=== PATIENT | female | born 1985 | race Caucasian/White ===

== ENCOUNTER 2016-10-06 22:10 | Emergency (ER) | payer MEDICAID, OTHER ==
[~2016-10-06] VITALS: Ht 177.8 cm; Wt 91.0 kg
[~2016-10-06 22:10] MED LIST: LORA-474 PO
[2016-10-06 22:27] VITALS: BP 149/98; PULSE 79; RESP 18; TEMP 98.3; O2SAT 100
[2016-10-06] MEDS ORDERED: KETOROLAC TROMETHAMINE 60 MG/2 ML (IM) VIAL IM ONE (23:45)
[2016-10-06] MEDS ORDERED: CYCLOBENZAPRINE HCL 10 MG TAB PO ONE (23:45)
[2016-10-06 23:58] LABS: BLOOD, URINE NEG (NEG); GLUCOSE,URINE NEG (NEG); KETONE, URINE NEG (NEG); NITRITE,URINE NEG (NEG); PH, URINE 6.5 (5.0-8.5)
[2016-10-07 00:16] LABS: URINE COLOR YELLOW (YELLW/STRAW)
--- NOTE | 2016-10-07 00:16 | RADHPO ---
EXAM DATE/TIME: 10/06/2016 23:36 [place] COMPARISON: No previous studies available for comparison. INDICATIONS : Lower back pain from unknown injury. MEDICAL HISTORY : None. SURGICAL HISTORY : None. ENCOUNTER: Initial ACUITY: 1 day PAIN SCORE: 8/10 LOCATION: Bilateral lower back. FINDINGS: There are five non-rib bearing vertebral bodies. The vertebral bodies are in normal alignment withou t evidence of subluxation or scoliosis. The disc spaces are maintained. The posterior elements are intact without evidence of spondylolysis. The pedicles are intact. Bony mineralization is normal. No fracture is identified. There is a minimal scoliosis. CONCLUSION: Minimal scoliosis with no underlying bony abnormality. Ron Irvin MD on October 07, 2016 at 0:13 Board Certified Radiologist. This report was verified electronically.
[2016-10-07 00:17] LABS: COMMENT (UR) CULT NOT INDICATED; CULTURE IF INDICATED CULT NOT INDICATED; MUCUS URINE RARE /lpf (OCC); SQUAMOUS EPITHELIAL CELL URINE 0-5 /hpf (0-5)
[2016-10-07 00:18] LABS: BACTERIA, URINE OCC /hpf
[2016-10-07] MEDS ORDERED: CYCL1TAB29 PO (01:13)
[2016-10-07] MEDS ORDERED: IBUP-232 PO (01:13)
--- NOTE | 2016-10-07 01:13 | PD ---
HPI Chief Complaint: Abdominal Pain Time Seen by Provider: 23:26 Travel History International Travel<30 days: No Contact w/Intl Traveler<30days: No Traveled to known affect area: No History of Present Illness HPI Patient is a 30-year-old female who comes in complaining of low back pain. She says she has had the pain for the past few days, and sometimes it wraps around to the front. She went to an urgent care yesterday and was prescribed Bactrim and was told she should follow-up with [facility]. She says the pain does radiate to the tops of her legs. She denies any dysuria. She has not had fever or chills. She says she occasionally has some vaginal discharge. She has not had any nausea or vomiting. She denies any injuries. She does work as a nurse. PFSH Past Medical History Blood Disorders: Yes (THROMBOCYTOPENIA DURING ) Diabetes: Yes (GESTATIONAL) Patient Takes Glucophage: No Hypertension: Yes (PREECLAMPSIA: FIRST ) Immune Disorder: Yes (GESTATIONAL ERYTHEMA NODOSUM) Tetanus Vaccination: < 5 Years ?: Not LMP: 09/24/16 : 5 Para: 3 Miscarriage: 2 Past Surgical History Surgical History: No Previous Surgery Social History Alcohol Use: Yes (OCC) Tobacco Use: No (QUIT AGE 18) Substance Use: No Allergies-Medications (Allergen,Severity, Reaction): Coded Allergies: No Known Allergies (Verified , 10/06/16) Reported Meds & Prescriptions Reported Meds & Active Scripts Active No Active Prescriptions or Reported Medications Review of Systems Except as stated in HPI: all other systems reviewed are Neg General / Constitutional: No: Fever, Chills HENT: No: Headaches, Lightheadedness Cardiovascular: No: Chest Pain or Discomfort Respiratory: No: Shortness of Breath Gastrointestinal: Positive: Abdominal Pain, No: Nausea, Vomiting Genitourinary: No: Dysuria, Flank Pain Musculoskeletal: Positive: Pain Skin: No Rash, No Change in Pigmentation Neurologic: No: Weakness, Dizziness Physical Exam Narrative GENERAL: Awake and alert, in no acute distress. SKIN: Focused skin assessment warm/dry. HEAD: Atraumatic. Normocephalic. EYES: Pupils equal and round. No scleral icterus. ENT: Mucous membranes pink and moist. NECK: Trachea midline. No JVD. CARDIOVASCULAR: Regular rate and rhythm. No murmur appreciated. RESPIRATORY: No accessory muscle use. Clear to auscultation. Breath sounds equal bilaterally. GASTROINTESTINAL: Abdomen soft, non-tender, nondistended. No CVA tenderness. : Performed in the presence of a female nurse. Thin white discharge. No cervical lesions. No CMT. MUSCULOSKELETAL: No obvious deformities. No clubbing. No cyanosis. No edema. Tender to the right sacroiliac area. NEUROLOGICAL: Awake and alert. No obvious cranial nerve deficits. Motor grossly within normal limits. Normal speech. PSYCHIATRIC: Appropriate mood and affect; insight and judgment normal. Data Data Last Documented VS Vital Signs Date Time Temp Pulse Resp B/P Pulse Ox O2 Delivery O2 Flow Rate FiO2 10/06/16 22:27 98.3 79 18 149/98 100 Orders Spine, Lumbar Comp W/Obliq (10/06/16 ) Urinalysis - C+S If Indicated (10/06/16 23:33) Ed Urine Pregnancytest Poc (10/06/16 23:33) Ketorolac Inj (Toradol Inj) (10/06/16 23:45) Cyclobenzaprine (Flexeril) (10/06/16 23:45) Wet Prep Profile (10/07/16 00:45) Gc And Chlamydia Pcr (10/07/16 00:45) Labs Laboratory Tests Test 10/06/16 10/07/16 23:25 00:45 Urine Color YELLOW Urine Turbidity CLEAR Urine pH 6.5 Urine Specific [place] 1.008 Urine Protein NEG mg/dL Urine Glucose (UA) NEG mg/dL Urine Ketones NEG mg/dL Urine Occult Blood NEG Urine Nitrite NEG Urine Bilirubin NEG Urine Leukocyte Esterase NEG Urine Squamous Epithelial 0-5 /hpf Cells Urine Amorphous Sediment SMALL Urine Bacteria OCC /hpf Urine Mucus RARE /lpf Microscopic Urinalysis Comment CULT NOT INDICATED Clue Cells (Wet Prep) NONE SEEN Vaginal Trichomonas (Wet Prep) NONE SEEN Vaginal Yeast (Wet Prep) NONE SEEN MDM Medical Decision Making Medical Screen Exam Complete: Yes Emergency Medical Condition: Yes Differential Diagnosis Sciatica versus muscle strain versus low back strain versus UTI versus BV Narrative Course Patient is a 30-year-old female who comes in complaining of low back pain. She has no abdominal tenderness on exam. She has of a white discharge on pelvic exam. Swab sent for wet prep showed no acute abnormalities. Swab sent for GC and chlamydia. Urinalysis shows no acute abnormalities. Patient given Flexeril and Toradol. X-ray of the lumbar spine shows slight scoliosis. Advised the patient that this sounds very musculoskeletal. Advised her to take ibuprofen and muscle relaxers as needed. Advised to follow-up with her primary care doctor. Advised to return to the ED as needed for any worsening symptoms. Diagnosis Primary Impression: Low back strain Qualified Code: S39.012A - Low back strain, initial encounter Patient Instructions: Acute Low Back Pain (ED), General Instructions Additional Instructions: Follow up with your doctors. Take Ibuprofen and muscle relaxers for pain. Return to the ED as needed for any worsening symptoms. Scripts Cyclobenzaprine (Flexeril)10 Mg Tab10 Mg PO TID #15 TAB Ref 0 Prov:Lupe Diamond MD 10/07/16 Ibuprofen 600 Mg Zds152 Mg PO Q6H PRN (Pain/Inflammation) #20 TAB Ref 0 Prov:Lupe Diamond MD 10/07/16 Disposition: 01 DISCHARGE HOME Condition: Stable Lupe Diamond MD October 07, 2016 01:13
[2016-10-07 01:26] VITALS: BP 131/75
[2016-10-07 03:56] LABS: CHLAMYDIA PCR NOT DETECTED (NOT DETECT); NEISSERIA PCR NOT DETECTED (NOT DETECT)
== END 2016-10-07 01:33 | disposition home or self-care (01) ==
LOC: PHED 22:10
DX: S39.012A Strain of muscle, fascia and tendon of lower back, initial encounter (principal); N89.8 Other specified noninflammatory disorders of vagina; M41.9 Scoliosis, unspecified; Z87.891 Personal history of nicotine dependence; X58.XXXA Exposure to other specified factors, initial encounter
CPT/HCPCS: 72110; 81001; 84703; 87210; 87491; 87591; 96372; 99283; J1885

== ENCOUNTER 2017-09-27 19:58 | Emergency (ER) | payer OTHER, BC | END 2017-09-27 22:02 | disposition home or self-care (01) | LOC: PHEFT 19:58 | DX: S16.1XXA Strain of muscle, fascia and tendon at neck level, initial encounter (principal); S09.90XA Unspecified injury of head, initial encounter; V89.2XXA Person injured in unspecified motor-vehicle accident, traffic, initial encounter; Y92.410 Unspecified street and highway as the place of occurrence of the external cause; G89.29 Other chronic pain; M54.5 Low back pain; F41.9 Anxiety disorder, unspecified; Z87.891 Personal history of nicotine dependence | CPT/HCPCS: 72050; 99283 ==